=== PATIENT | female | born 1950 | race Caucasian/White ===

== ENCOUNTER 2020-09-15 08:43 | Day surgery (SDC) | payer MEDICARE, OTHER ==
[~2020-09-15 08:43] MED LIST: AMLO5 PO; ATOR80 PO; Aspir 8181 MG PO; BASAGLAR K100 UNIT/1 SC; CARV25 PO; DOXA2 PO; FURO40 PO; Fish Oil 10001000 MG PO; HYDCHL25 PO; LOSA50 PO; NOVOLOG100 UNIT/1 SC; OXYGEN; SPIR25 PO; Synthroid200 MCG PO; XARELTO15 MG PO
== END 2020-09-15 23:36 | disposition home or self-care (01) ==
LOC: WOUND 08:43
DX: E11.622 Type 2 diabetes mellitus with other skin ulcer (principal); L97.822 Non-pressure chronic ulcer of other part of left lower leg with fat layer exposed; L97.811 Non-pressure chronic ulcer of other part of right lower leg limited to breakdown of skin; E11.52 Type 2 diabetes mellitus with diabetic peripheral angiopathy with gangrene; I96 Gangrene, not elsewhere classified; E89.0 Postprocedural hypothyroidism; I87.2 Venous insufficiency (chronic) (peripheral); E11.59 Type 2 diabetes mellitus with other circulatory complications; I49.9 Cardiac arrhythmia, unspecified; I13.2 Hypertensive heart and chronic kidney disease with heart failure and with stage 5 chronic kidney disease, or end stage renal disease; E11.22 Type 2 diabetes mellitus with diabetic chronic kidney disease; N18.6 End stage renal disease; I50.9 Heart failure, unspecified; I48.91 Unspecified atrial fibrillation; E66.01 Morbid (severe) obesity due to excess calories; Z68.43 Body mass index [BMI] 50.0-59.9, adult; Z79.4 Long term (current) use of insulin; Z79.01 Long term (current) use of anticoagulants; Z79.899 Other long term (current) drug therapy; Z51.5 Encounter for palliative care; Z88.5 Allergy status to narcotic agent
CPT/HCPCS: G0463

== ENCOUNTER 2020-09-22 00:19 | Day surgery (SDC) | payer MEDICARE, OTHER | END 2020-09-22 23:17 | disposition home or self-care (01) | LOC: WOUND | DX: E11.622 Type 2 diabetes mellitus with other skin ulcer (principal); L97.822 Non-pressure chronic ulcer of other part of left lower leg with fat layer exposed; L97.811 Non-pressure chronic ulcer of other part of right lower leg limited to breakdown of skin; E11.52 Type 2 diabetes mellitus with diabetic peripheral angiopathy with gangrene; I96 Gangrene, not elsewhere classified; I49.9 Cardiac arrhythmia, unspecified; E07.9 Disorder of thyroid, unspecified; I87.2 Venous insufficiency (chronic) (peripheral); I13.2 Hypertensive heart and chronic kidney disease with heart failure and with stage 5 chronic kidney disease, or end stage renal disease; E11.22 Type 2 diabetes mellitus with diabetic chronic kidney disease; N18.6 End stage renal disease; I50.9 Heart failure, unspecified; E11.59 Type 2 diabetes mellitus with other circulatory complications; Z79.4 Long term (current) use of insulin; Z79.01 Long term (current) use of anticoagulants; Z79.899 Other long term (current) drug therapy; Z88.5 Allergy status to narcotic agent; Z51.5 Encounter for palliative care | CPT/HCPCS: G0463 ==

== ENCOUNTER 2020-09-29 00:17 | Day surgery (SDC) | payer MEDICARE, OTHER | END 2020-09-29 22:52 | disposition home or self-care (01) | LOC: WOUND 00:17 | DX: E11.622 Type 2 diabetes mellitus with other skin ulcer (principal); L97.829 Non-pressure chronic ulcer of other part of left lower leg with unspecified severity; I87.2 Venous insufficiency (chronic) (peripheral); E11.59 Type 2 diabetes mellitus with other circulatory complications; I11.0 Hypertensive heart disease with heart failure; I50.9 Heart failure, unspecified; Z79.4 Long term (current) use of insulin; Z79.899 Other long term (current) drug therapy; Z79.01 Long term (current) use of anticoagulants | CPT/HCPCS: G0463 ==

== ENCOUNTER 2020-10-11 00:31 | Day surgery (SDC) | payer MEDICARE, OTHER | END 2020-10-11 23:09 | disposition home or self-care (01) | LOC: WOUND 00:31 | DX: E11.622 Type 2 diabetes mellitus with other skin ulcer (principal); L97.822 Non-pressure chronic ulcer of other part of left lower leg with fat layer exposed; L97.819 Non-pressure chronic ulcer of other part of right lower leg with unspecified severity; E11.52 Type 2 diabetes mellitus with diabetic peripheral angiopathy with gangrene; I96 Gangrene, not elsewhere classified; E11.59 Type 2 diabetes mellitus with other circulatory complications; I87.2 Venous insufficiency (chronic) (peripheral); I49.9 Cardiac arrhythmia, unspecified; I13.2 Hypertensive heart and chronic kidney disease with heart failure and with stage 5 chronic kidney disease, or end stage renal disease; E11.22 Type 2 diabetes mellitus with diabetic chronic kidney disease; N18.6 End stage renal disease; I50.9 Heart failure, unspecified; Z79.4 Long term (current) use of insulin; Z79.01 Long term (current) use of anticoagulants; Z79.899 Other long term (current) drug therapy; Z88.5 Allergy status to narcotic agent | CPT/HCPCS: 36415; 80069; G0463 ==

== ENCOUNTER 2020-10-27 00:17 | Day surgery (SDC) | payer MEDICARE, OTHER | END 2020-10-27 23:06 | disposition home or self-care (01) | LOC: WOUND 00:17 | DX: E11.622 Type 2 diabetes mellitus with other skin ulcer (principal); L97.822 Non-pressure chronic ulcer of other part of left lower leg with fat layer exposed; L97.819 Non-pressure chronic ulcer of other part of right lower leg with unspecified severity; E11.59 Type 2 diabetes mellitus with other circulatory complications; E11.52 Type 2 diabetes mellitus with diabetic peripheral angiopathy with gangrene; I96 Gangrene, not elsewhere classified; I87.2 Venous insufficiency (chronic) (peripheral); I13.0 Hypertensive heart and chronic kidney disease with heart failure and stage 1 through stage 4 chronic kidney disease, or unspecified chronic kidney disease; E11.22 Type 2 diabetes mellitus with diabetic chronic kidney disease; N18.6 End stage renal disease; I49.9 Cardiac arrhythmia, unspecified; E89.0 Postprocedural hypothyroidism; Z88.5 Allergy status to narcotic agent; Z79.4 Long term (current) use of insulin; Z79.01 Long term (current) use of anticoagulants; Z79.899 Other long term (current) drug therapy ==

== ENCOUNTER 2020-10-31 00:32 | Day surgery (SDC) | payer MEDICARE, OTHER | END 2020-10-31 23:47 | disposition home or self-care (01) | LOC: WOUND 00:32 | DX: E11.622 Type 2 diabetes mellitus with other skin ulcer (principal); L97.829 Non-pressure chronic ulcer of other part of left lower leg with unspecified severity; I87.2 Venous insufficiency (chronic) (peripheral); E11.59 Type 2 diabetes mellitus with other circulatory complications; I11.0 Hypertensive heart disease with heart failure; I50.9 Heart failure, unspecified; L97.822 Non-pressure chronic ulcer of other part of left lower leg with fat layer exposed; Z79.899 Other long term (current) drug therapy; Z79.4 Long term (current) use of insulin | CPT/HCPCS: G0463 ==

== ENCOUNTER 2020-11-16 00:41 | Day surgery (SDC) | payer MEDICARE, OTHER | END 2020-11-16 22:44 | disposition home or self-care (01) | LOC: WOUND 00:41 | DX: E11.622 Type 2 diabetes mellitus with other skin ulcer (principal); L97.822 Non-pressure chronic ulcer of other part of left lower leg with fat layer exposed; L97.811 Non-pressure chronic ulcer of other part of right lower leg limited to breakdown of skin; I87.2 Venous insufficiency (chronic) (peripheral); E11.59 Type 2 diabetes mellitus with other circulatory complications; I11.0 Hypertensive heart disease with heart failure; I50.9 Heart failure, unspecified; K82.9 Disease of gallbladder, unspecified; Z79.4 Long term (current) use of insulin | CPT/HCPCS: G0463 ==

== ENCOUNTER 2020-11-23 00:27 | Day surgery (SDC) | payer MEDICARE, OTHER | END 2020-11-23 22:48 | disposition home or self-care (01) | LOC: WOUND 00:27 | DX: E11.622 Type 2 diabetes mellitus with other skin ulcer (principal); L97.822 Non-pressure chronic ulcer of other part of left lower leg with fat layer exposed; L97.811 Non-pressure chronic ulcer of other part of right lower leg limited to breakdown of skin; E11.59 Type 2 diabetes mellitus with other circulatory complications; I11.0 Hypertensive heart disease with heart failure; I50.9 Heart failure, unspecified; I87.2 Venous insufficiency (chronic) (peripheral); E89.0 Postprocedural hypothyroidism | CPT/HCPCS: A9270 ==

== ENCOUNTER 2020-11-30 00:43 | Day surgery (SDC) | payer MEDICARE, OTHER | END 2020-11-30 23:11 | disposition home or self-care (01) | LOC: WOUND 00:43 | DX: E11.622 Type 2 diabetes mellitus with other skin ulcer (principal); L97.822 Non-pressure chronic ulcer of other part of left lower leg with fat layer exposed; L97.812 Non-pressure chronic ulcer of other part of right lower leg with fat layer exposed; E11.52 Type 2 diabetes mellitus with diabetic peripheral angiopathy with gangrene; I96 Gangrene, not elsewhere classified; I87.2 Venous insufficiency (chronic) (peripheral); E11.59 Type 2 diabetes mellitus with other circulatory complications; I13.2 Hypertensive heart and chronic kidney disease with heart failure and with stage 5 chronic kidney disease, or end stage renal disease; E11.22 Type 2 diabetes mellitus with diabetic chronic kidney disease; N18.6 End stage renal disease; I50.9 Heart failure, unspecified; E89.0 Postprocedural hypothyroidism; I49.9 Cardiac arrhythmia, unspecified; Z79.4 Long term (current) use of insulin; Z79.01 Long term (current) use of anticoagulants; Z79.899 Other long term (current) drug therapy; Z88.5 Allergy status to narcotic agent | CPT/HCPCS: G0463 ==

== ENCOUNTER 2020-12-07 00:17 | Day surgery (SDC) | payer MEDICARE, OTHER | END 2020-12-07 22:38 | disposition home or self-care (01) | LOC: WOUND 00:17 | DX: E11.622 Type 2 diabetes mellitus with other skin ulcer (principal); I87.2 Venous insufficiency (chronic) (peripheral); L97.822 Non-pressure chronic ulcer of other part of left lower leg with fat layer exposed; L97.812 Non-pressure chronic ulcer of other part of right lower leg with fat layer exposed; E11.59 Type 2 diabetes mellitus with other circulatory complications; I11.0 Hypertensive heart disease with heart failure; I50.9 Heart failure, unspecified; E07.9 Disorder of thyroid, unspecified; K62.5 Hemorrhage of anus and rectum; K82.9 Disease of gallbladder, unspecified; R06.02 Shortness of breath; Z79.4 Long term (current) use of insulin | CPT/HCPCS: G0463 ==

== ENCOUNTER 2020-12-14 00:19 | Day surgery (SDC) | payer MEDICARE, OTHER | END 2020-12-14 23:45 | disposition home or self-care (01) | LOC: WOUND 00:19 | DX: E11.622 Type 2 diabetes mellitus with other skin ulcer (principal); L97.828 Non-pressure chronic ulcer of other part of left lower leg with other specified severity; L97.819 Non-pressure chronic ulcer of other part of right lower leg with unspecified severity; E11.59 Type 2 diabetes mellitus with other circulatory complications; I87.2 Venous insufficiency (chronic) (peripheral); I11.0 Hypertensive heart disease with heart failure; I50.9 Heart failure, unspecified ==

== ENCOUNTER 2020-12-20 01:16 | Day surgery (SDC) | payer MEDICARE, OTHER | END 2020-12-20 22:55 | disposition home or self-care (01) | LOC: WOUND 01:16 | DX: E11.622 Type 2 diabetes mellitus with other skin ulcer (principal); L97.921 Non-pressure chronic ulcer of unspecified part of left lower leg limited to breakdown of skin; L97.911 Non-pressure chronic ulcer of unspecified part of right lower leg limited to breakdown of skin; I11.0 Hypertensive heart disease with heart failure; I50.9 Heart failure, unspecified; E11.51 Type 2 diabetes mellitus with diabetic peripheral angiopathy without gangrene; E11.59 Type 2 diabetes mellitus with other circulatory complications | CPT/HCPCS: G0463 ==

== ENCOUNTER 2020-12-28 01:38 | Day surgery (SDC) | payer MEDICARE, OTHER | END 2020-12-28 23:02 | disposition home or self-care (01) | LOC: WOUND 01:38 | DX: E11.622 Type 2 diabetes mellitus with other skin ulcer (principal); L97.821 Non-pressure chronic ulcer of other part of left lower leg limited to breakdown of skin; L97.811 Non-pressure chronic ulcer of other part of right lower leg limited to breakdown of skin; I87.2 Venous insufficiency (chronic) (peripheral); I89.0 Lymphedema, not elsewhere classified; E11.59 Type 2 diabetes mellitus with other circulatory complications; E66.01 Morbid (severe) obesity due to excess calories; I11.0 Hypertensive heart disease with heart failure; I50.9 Heart failure, unspecified; E89.0 Postprocedural hypothyroidism; Z68.43 Body mass index [BMI] 50.0-59.9, adult | CPT/HCPCS: G0463 ==

== ENCOUNTER 2021-01-04 00:32 | Day surgery (SDC) | payer MEDICARE, OTHER | END 2021-01-04 22:48 | disposition home or self-care (01) | LOC: WOUND 00:32 | DX: E11.622 Type 2 diabetes mellitus with other skin ulcer (principal); L97.812 Non-pressure chronic ulcer of other part of right lower leg with fat layer exposed; L97.821 Non-pressure chronic ulcer of other part of left lower leg limited to breakdown of skin; I87.2 Venous insufficiency (chronic) (peripheral); I89.0 Lymphedema, not elsewhere classified; E11.59 Type 2 diabetes mellitus with other circulatory complications | CPT/HCPCS: A9270; G0463 ==

== ENCOUNTER 2021-01-11 00:12 | Day surgery (SDC) | payer MEDICARE, OTHER | END 2021-01-11 22:41 | disposition home or self-care (01) | LOC: WOUND 00:12 | DX: E11.622 Type 2 diabetes mellitus with other skin ulcer (principal); L97.812 Non-pressure chronic ulcer of other part of right lower leg with fat layer exposed; L98.491 Non-pressure chronic ulcer of skin of other sites limited to breakdown of skin; I87.2 Venous insufficiency (chronic) (peripheral); I89.0 Lymphedema, not elsewhere classified; E11.59 Type 2 diabetes mellitus with other circulatory complications; I10 Essential (primary) hypertension; Z79.4 Long term (current) use of insulin | CPT/HCPCS: G0463 ==

== ENCOUNTER 2021-01-17 00:25 | Day surgery (SDC) | payer MEDICARE, OTHER | END 2021-01-17 22:54 | disposition home or self-care (01) | LOC: WOUND 00:25 | DX: E11.622 Type 2 diabetes mellitus with other skin ulcer (principal); L97.812 Non-pressure chronic ulcer of other part of right lower leg with fat layer exposed; L97.821 Non-pressure chronic ulcer of other part of left lower leg limited to breakdown of skin; L97.819 Non-pressure chronic ulcer of other part of right lower leg with unspecified severity; E11.59 Type 2 diabetes mellitus with other circulatory complications; I87.2 Venous insufficiency (chronic) (peripheral); Z79.4 Long term (current) use of insulin | CPT/HCPCS: G0463 ==

== ENCOUNTER 2021-01-25 00:44 | Day surgery (SDC) | payer MEDICARE, OTHER | END 2021-01-25 22:44 | disposition home or self-care (01) | LOC: WOUND 00:44 | DX: E11.622 Type 2 diabetes mellitus with other skin ulcer (principal); I87.2 Venous insufficiency (chronic) (peripheral); I89.0 Lymphedema, not elsewhere classified; L97.829 Non-pressure chronic ulcer of other part of left lower leg with unspecified severity; L97.819 Non-pressure chronic ulcer of other part of right lower leg with unspecified severity; E11.59 Type 2 diabetes mellitus with other circulatory complications ==

== ENCOUNTER 2021-02-01 00:20 | Day surgery (SDC) | payer MEDICARE, OTHER | END 2021-02-01 22:40 | disposition home or self-care (01) | LOC: WOUND 00:20 | DX: E11.622 Type 2 diabetes mellitus with other skin ulcer (principal); L97.821 Non-pressure chronic ulcer of other part of left lower leg limited to breakdown of skin; L97.811 Non-pressure chronic ulcer of other part of right lower leg limited to breakdown of skin; E11.59 Type 2 diabetes mellitus with other circulatory complications; I89.0 Lymphedema, not elsewhere classified; I87.2 Venous insufficiency (chronic) (peripheral) | CPT/HCPCS: G0463 ==

== ENCOUNTER 2021-02-08 01:21 | Day surgery (SDC) | payer MEDICARE, OTHER | END 2021-02-08 23:01 | disposition home or self-care (01) | LOC: WOUND 01:21 | DX: L97.819 Non-pressure chronic ulcer of other part of right lower leg with unspecified severity (principal); L97.829 Non-pressure chronic ulcer of other part of left lower leg with unspecified severity | CPT/HCPCS: G0463 ==

== ENCOUNTER 2021-02-15 00:21 | Day surgery (SDC) | payer MEDICARE, OTHER | END 2021-02-15 22:45 | disposition home or self-care (01) | LOC: WOUND 00:21 | DX: E11.622 Type 2 diabetes mellitus with other skin ulcer (principal); L97.829 Non-pressure chronic ulcer of other part of left lower leg with unspecified severity; L97.819 Non-pressure chronic ulcer of other part of right lower leg with unspecified severity; I87.2 Venous insufficiency (chronic) (peripheral); I89.0 Lymphedema, not elsewhere classified; E11.59 Type 2 diabetes mellitus with other circulatory complications | CPT/HCPCS: G0463 ==

== ENCOUNTER 2021-03-08 01:12 | Day surgery (SDC) | payer MEDICARE, OTHER | END 2021-03-08 23:22 | disposition home or self-care (01) | LOC: WOUND 01:12 | DX: I89.0 Lymphedema, not elsewhere classified (principal) | CPT/HCPCS: G0463 ==

== ENCOUNTER 2021-03-29 10:01 | Day surgery (SDC) | payer MEDICARE, OTHER | END 2021-03-30 23:03 | disposition home or self-care (01) | LOC: WOUND 10:01 | DX: E11.622 Type 2 diabetes mellitus with other skin ulcer (principal); L97.812 Non-pressure chronic ulcer of other part of right lower leg with fat layer exposed; L97.829 Non-pressure chronic ulcer of other part of left lower leg with unspecified severity; I87.2 Venous insufficiency (chronic) (peripheral); I89.0 Lymphedema, not elsewhere classified; E11.59 Type 2 diabetes mellitus with other circulatory complications ==

== ENCOUNTER 2021-04-05 03:21 | Day surgery (SDC) | payer MEDICARE, OTHER | END 2021-04-05 23:34 | disposition home or self-care (01) | LOC: WOUND 03:21 | DX: E11.622 Type 2 diabetes mellitus with other skin ulcer (principal); L97.829 Non-pressure chronic ulcer of other part of left lower leg with unspecified severity; L97.819 Non-pressure chronic ulcer of other part of right lower leg with unspecified severity; E11.59 Type 2 diabetes mellitus with other circulatory complications; I87.2 Venous insufficiency (chronic) (peripheral); I89.0 Lymphedema, not elsewhere classified | CPT/HCPCS: A9270 ==

== ENCOUNTER 2021-04-12 04:36 | Day surgery (SDC) | payer MEDICARE, OTHER | END 2021-04-12 22:58 | disposition home or self-care (01) | LOC: WOUND 04:36 | DX: E11.622 Type 2 diabetes mellitus with other skin ulcer (principal); L97.812 Non-pressure chronic ulcer of other part of right lower leg with fat layer exposed; L97.829 Non-pressure chronic ulcer of other part of left lower leg with unspecified severity; E11.59 Type 2 diabetes mellitus with other circulatory complications; I87.2 Venous insufficiency (chronic) (peripheral); I89.0 Lymphedema, not elsewhere classified; Z79.4 Long term (current) use of insulin | CPT/HCPCS: A9270; G0463 ==

== ENCOUNTER 2021-04-19 02:21 | Day surgery (SDC) | payer MEDICARE, OTHER | END 2021-04-19 23:51 | disposition home or self-care (01) | LOC: WOUND 02:21 | DX: E11.622 Type 2 diabetes mellitus with other skin ulcer (principal); L97.829 Non-pressure chronic ulcer of other part of left lower leg with unspecified severity; L97.819 Non-pressure chronic ulcer of other part of right lower leg with unspecified severity; I87.2 Venous insufficiency (chronic) (peripheral); I89.0 Lymphedema, not elsewhere classified; E11.59 Type 2 diabetes mellitus with other circulatory complications | CPT/HCPCS: A9270; G0463 ==

== ENCOUNTER 2021-04-26 04:34 | Day surgery (SDC) | payer MEDICARE, OTHER | END 2021-04-26 22:53 | disposition home or self-care (01) | LOC: WOUND 04:34 | DX: L97.812 Non-pressure chronic ulcer of other part of right lower leg with fat layer exposed (principal); L97.822 Non-pressure chronic ulcer of other part of left lower leg with fat layer exposed | CPT/HCPCS: G0463 ==

== ENCOUNTER 2021-05-10 02:54 | Day surgery (SDC) | payer MEDICARE, OTHER | END 2021-05-10 23:35 | disposition home or self-care (01) | LOC: WOUND 02:54 | DX: E11.622 Type 2 diabetes mellitus with other skin ulcer (principal); L97.829 Non-pressure chronic ulcer of other part of left lower leg with unspecified severity; L97.819 Non-pressure chronic ulcer of other part of right lower leg with unspecified severity; I87.2 Venous insufficiency (chronic) (peripheral); I89.0 Lymphedema, not elsewhere classified; E11.59 Type 2 diabetes mellitus with other circulatory complications | CPT/HCPCS: G0463 ==

== ENCOUNTER → 2022-10-31 | Outpatient (CLI) | payer MEDICARE, OTHER ==
[2022-10-31 15:40] LABS: Creatinine, Urine Random 34.2 mg/dL (27.00-270.00); Protein, Urine Random 6.3 mg/dL (0.0-11.9); Protein/Creat Ratio, Ur Random 0.2
[2022-10-31 16:37] LABS: Albumin, Blood 3.1 g/dL (3.4-5.0); Anion Gap 5 mmol/L (6-16); Blood Urea Nitrogen 28 mg/dL (8-24); Bun/Creatinine Ratio 18.9 (12.0-20.0); CO2, Blood 29 mmol/L (21-32); Calcium, Blood 8.7 mg/dL (8.5-10.1); Chloride, Blood 111 mmol/L (98-108); Creatinine, Blood 1.48 mg/dL (0.40-1.00); Glomerular Filtration Rate 38 (60-); Glucose, Blood 95 mg/dL (70-99); Phosphorus, Blood 3.7 mg/dL (2.5-4.9); Sodium, Blood 145 mmol/L (136-145)
== END | disposition home or self-care (01) ==
LOC: LAB SHORT 14:33
PROVIDERS: Internal Medicine Nephrology
DX: N18.4 Chronic kidney disease, stage 4 (severe) (principal)
CPT/HCPCS: 80069; 82570; 83970; 84156

== ENCOUNTER 2023-11-25 02:49 | Emergency (ER) | payer MEDICARE, OTHER ==
[~2023-11-25] VITALS: Ht 177.8 cm; Wt 167.8 kg
[2023-11-25 08:01] VITALS: BP 126/91
== END 2023-11-25 08:15 | disposition home or self-care (01) ==
LOC: ER 02:49
DX: S22.41XA Multiple fractures of ribs, right side, initial encounter for closed fracture (principal); S86.911A Strain of unspecified muscle(s) and tendon(s) at lower leg level, right leg, initial encounter; W18.30XA Fall on same level, unspecified, initial encounter
CPT/HCPCS: 12011; 70450; 71250; 72125; 73562-RT; 90471; 90714; 96374-59; 96375-59; 96376-59; 99284-25; A9270; J1170; J2405

== ENCOUNTER 2023-12-01 21:43 | Emergency (ER) | payer MEDICARE, OTHER ==
[~2023-12-01] VITALS: Ht 177.8 cm; Wt 167.8 kg
[2023-12-01 22:00] VITALS: BP 132/90
[2023-12-01] MEDS ORDERED: HYDR1TAB94 PO (23:39)
== END 2023-12-02 00:09 | disposition home or self-care (01) ==
LOC: ER 21:43
DX: S80.11XA Contusion of right lower leg, initial encounter (principal); Z79.899 Other long term (current) drug therapy; Z79.01 Long term (current) use of anticoagulants; W19.XXXA Unspecified fall, initial encounter
CPT/HCPCS: 99283; A9270

== ENCOUNTER 2024-05-24 21:00 | Emergency (ER) | payer MEDICARE, OTHER ==
[~2024-05-24] VITALS: Ht 177.8 cm; Wt 172.4 kg
[~2024-05-24 21:00] MED LIST changes: +HYDR1TAB94 PO
[2024-05-24 21:40] LABS: BASOPHILS ABSOLUTE AUTO 0.05 K/mm3 (0.00-0.23); BASOPHILS PERCENT AUTO 1 % (0-2); EOSINOPHILS ABSOLUTE AUTO 0.19 K/mm3 (0.00-0.68); EOSINOPHILS PERCENT AUTO 2 % (0-6); Hematocrit 43.7 % (33.0-51.0); Hemoglobin 12.8 g/dL (11.5-16.0); IMMATURE GRAN ABSOLUTE AUTO 0.03 K/mm3 (0.00-0.10); IMMATURE GRAN PERCENT AUTO 0 % (0-1); LYMPHOCYTES PERCENT AUTO 14 % (21-46); MONOCYTES ABSOLUTE AUTO 0.75 K/mm3 (0.16-1.47); MONOCYTES PERCENT AUTO 8 % (4-13); Mean Corpuscular HGB 26.6 pg (26.0-34.0); Mean Corpuscular HGB Conc 29.3 g/dL (31.5-36.5); Mean Corpuscular Volume 91 fL (80-100); NEUTROPHILS ABSOLUTE AUTO 7.11 K/mm3 (1.96-9.15); NEUTROPHILS PERCENT AUTO 75 % (41-73); Platelet Count 207 K/mm3 (150-400); RDW Coefficient Variation 19.1 % (11.7-14.2); RDW Standard Deviation 62.1 fL (35.1-46.3); Red Blood Cell Count 4.82 M/mm3 (3.80-5.20); White Blood Cell Count 9.43 K/mm3 (4.00-11.30)
[2024-05-24 21:58] LABS: Albumin, Blood 2.9 g/dL (3.4-5.0); Albumin/Globulin Ratio 0.8 (0.8-1.8); Bilirubin, Total 0.6 mg/dL (0.1-1.0); Bun/Creatinine Ratio 19.6 (12.0-20.0); Calcium, Blood 8.5 mg/dL (8.5-10.1); Creatinine, Blood 1.38 mg/dL (0.40-1.00); Globulin, Blood 3.7 g/dL (2.2-4.0); Potassium, Blood 4.1 mmol/L (3.5-5.5); Total Protein, Blood 6.6 g/dL (6.4-8.2)
[2024-05-24] MEDS ORDERED: Furosemide 10 MG/ML 4ML Vial IV ONE (23:20)
[2024-05-24 23:30] VITALS: BP 145/94
== END 2024-05-25 00:08 | disposition home or self-care (01) ==
LOC: ER 21:00
PROVIDERS: Emergency Medicine
DX: I13.0 Hypertensive heart and chronic kidney disease with heart failure and stage 1 through stage 4 chronic kidney disease, or unspecified chronic kidney disease (principal); I50.9 Heart failure, unspecified; R60.0 Localized edema; E11.22 Type 2 diabetes mellitus with diabetic chronic kidney disease; N18.2 Chronic kidney disease, stage 2 (mild); E78.5 Hyperlipidemia, unspecified; E03.9 Hypothyroidism, unspecified; E66.01 Morbid (severe) obesity due to excess calories; I48.91 Unspecified atrial fibrillation; Z79.899 Other long term (current) drug therapy; Z79.4 Long term (current) use of insulin
CPT/HCPCS: 71046; 80053; 83880; 85025; 93005; 93010; 96374; 99285-25; J1940

== ENCOUNTER 2024-10-13 14:30 | Inpatient (IN) | payer MEDICARE, OTHER ==
[~2024-10-13] VITALS: Ht 177.8 cm; Wt 167.9 kg
[~2024-10-13 14:30] MED LIST changes: +FURO20 PO; -FURO40 PO; +SYNTHROID PO; -Synthroid200 MCG PO
[2024-10-13] MEDS ORDERED: Furosemide 10 MG/ML 4ML Vial IV ONE (15:10)
[2024-10-13 15:34] LABS: BASOPHILS ABSOLUTE AUTO 0.05 K/mm3 (0.00-0.23); BASOPHILS PERCENT AUTO 1 % (0-2); EOSINOPHILS ABSOLUTE AUTO 0.22 K/mm3 (0.00-0.68); EOSINOPHILS PERCENT AUTO 3 % (0-6); Hematocrit 45.3 % (33.0-51.0); IMMATURE GRAN ABSOLUTE AUTO 0.04 K/mm3 (0.00-0.10); IMMATURE GRAN PERCENT AUTO 1 % (0-1); LYMPHOCYTES ABSOLUTE AUTO 1.24 K/mm3 (0.84-5.20); LYMPHOCYTES PERCENT AUTO 14 % (21-46); MONOCYTES ABSOLUTE AUTO 0.68 K/mm3 (0.16-1.47); MONOCYTES PERCENT AUTO 8 % (4-13); Mean Corpuscular HGB 27.5 pg (26.0-34.0); Mean Corpuscular HGB Conc 28.7 g/dL (31.5-36.5); Mean Corpuscular Volume 96 fL (80-100); Mean Platelet Volume 10.7 fL (9.1-12.4); NEUTROPHILS ABSOLUTE AUTO 6.61 K/mm3 (1.96-9.15); NEUTROPHILS PERCENT AUTO 75 % (41-73); Platelet Count 218 K/mm3 (150-400); RDW Coefficient Variation 19.5 % (11.7-14.2); RDW Standard Deviation 67.4 fL (35.1-46.3); Red Blood Cell Count 4.72 M/mm3 (3.80-5.20); White Blood Cell Count 8.84 K/mm3 (4.00-11.30)
[2024-10-13 15:52] LABS: Bun/Creatinine Ratio 17.7 (12.0-20.0); Calcium, Blood 9.2 mg/dL (8.5-10.1); Creatinine, Blood 1.41 mg/dL (0.40-1.00); Potassium, Blood 4.6 mmol/L (3.5-5.5)
[2024-10-13] MEDS ORDERED: Doxycycline Hyclate 100 MG TAB PO ONE (16:45)
[2024-10-13] MEDS ORDERED: DOXY100 PO (16:46)
[2024-10-13] MEDS ORDERED: Ondansetron HCl 2 MG / ML 2ML Vial IV PRN (19:00)
[2024-10-13] MEDS ORDERED: FLU VACC TS2024-25(6MOS UP)/PF 45 MCG/0.5 ML SYRINGE IM SCH (19:00)
[2024-10-13] MEDS ORDERED: TraMADol HCl 50 MG Tab PO PRN (19:05)
[2024-10-13] MEDS ORDERED: CeFAZolin Sodium 2,000 MG in NS 100 ML IV SCH (20:00)
[2024-10-13 20:23] LABS: Source, Urine Foley catheter
[2024-10-13 20:30] LABS: Bilirubin, Urine Neg (Neg); Blood, Urine Neg (Neg); Glucose Qualitative, Urine 4+ (Neg); Ketones, Urine Neg (Neg); Leukocyte Esterase, Urine Neg (Neg); Nitrite, Urine Neg (Neg); Protein, Urine Neg (Neg); Specific Gravity, Urine 1.015 (1.003-1.022); Urobilinogen, Urine NORM (Normal)
[2024-10-13 20:38] LABS: Appearance, Urine Clear (Clear); Color, Urine Pale Yellow (P-Yellow)
[2024-10-13] MEDS ORDERED: Insulin Glargine-Yfgn 100 Unit/mL 3 ML SYR SC SCH (21:00)
[2024-10-13] MEDS ORDERED: Lactobacil 2-S.Thermo-Bifido 1 1 Cap PO SCH (21:00)
[2024-10-13] MEDS ORDERED: Sennosides 8.6 MG Tab PO SCH (21:00)
[2024-10-13 21:14] VITALS: BP 143/93
--- NOTE | 2024-10-13 21:15 | NUR ---
NEW ADMIT. PATIENT ADMITTED TO ROOM 354 FROM THE ER. PATIENT ARRIVED TO ROOM VIA GURNEY AND 2P TRANSPORT. PATIENT ABLE TO STAND PIVOT FROM GURNEY TO HOSPITAL BED WITH 2P ASSIST. PATIENT HAS PERSONAL BAG WITH TABLET AND COMMUNITY MARKETING MANAGER. PATIENT ARRIVED WITH A STEPHEN CATHETER THAT IS PATENT AND DRAINING TO GRAVITY. PATIENT ORIENTED TO ROOM AND THIS RN TO ASSUME PATIENT CARE.
[2024-10-13] MEDS ORDERED: FARXIGA10 MG PO (22:04)
[2024-10-13] MEDS ORDERED: NOVOLOG100 UNIT/2 SC (22:25)
[2024-10-13] MEDS ORDERED: TERB250 PO (22:37)
[2024-10-13] MEDS ORDERED: LISI5 PO (22:37)
--- NOTE | 2024-10-13 22:45 | NUR ---
WOUNDS TO BLE EVALUATED AND CLEANSED WITH WOUND SALES CONSULTANT INSURANCE AND GAUZE. DRESSING APPLIED TO LLE-WOUND IS WEAPING AND PAINFUL TO THE TOUCH- DRESSED WITH EXUDRY, KERLEX AND KALLI BANDAGE. WOUND TO RLE CLEANSED WITH WOUND SALES CONSULTANT INSURANCE AND GAUZE. DRESSING APPLIED TO RLE INCLUDES ABD PAD, KERLEX, AND SMALL KALLI BANDAGE. LOWER EXTREMITIES ELEVATED WITH PILLOWS AND BED.
[2024-10-14] MEDS ORDERED: NS 250 ML IV PRN (01:55)
[2024-10-14 02:05] VITALS: BP 134/100
--- NOTE | 2024-10-14 04:14 | NUR ---
SHIFT SUMMARY. PATIENT IS A&OX4. PATIENT IS PLEASANT AND COOPERATIVE WITH CARE. PATIENT HAS WOUNDS TO BLE-SEE PICTURES IN CHART. PATIENT CALLS APPROPRIATELY AND IS ABLE TO MAKE HER NEEDS KNOWN. PATIENT HAS RESTED OFF AND ON INTERMITTENTLY WATCHING TV ON HER TABLET. PATIENT HAS TROUBLE BREATHING WHEN LAYING FLAT DOWN-PATIENT ONLY LAYED FLAT TO WEIGH AND BOOST UP IN BED. [place] [facility] [place] A WALKER [facility]. PATIENT PROVIDED WATER AND TEA THIS SHIFT. PATIENTS IV LEAKING AND PAINFUL-NEW IV PLACED. PATIENT HAS MEDICATED POWDER ORDERED PER DOCTOR FOR REDNESS TO FOLDS AND GROIN. PATIENTS BED IS LOCKED IN THE LOWEST POSITION WITH CALL LIGHT IN REACH. CARE IS ONGOING.
[2024-10-14] MEDS ORDERED: Levothyroxine Sodium 0.1 MG Tab PO SCH (06:00)
[2024-10-14 06:03] LABS: Calcium, Blood 9.1 mg/dL (8.5-10.1); Creatinine, Blood 1.37 mg/dL (0.40-1.00); Potassium, Blood 4.2 mmol/L (3.5-5.5)
[2024-10-14 07:30] VITALS: BP 140/86
[2024-10-14] MEDS ORDERED: Insulin Human Lispro 100 Units/ML 3ML Syringe SC SCH (07:30)
[2024-10-14] MEDS ORDERED: Carvedilol 25 MG Tab PO SCH (08:00)
[2024-10-14] MEDS ORDERED: Spironolactone 25 MG Tab PO SCH (09:00)
[2024-10-14] MEDS ORDERED: Furosemide 40 MG Tab PO SCH (09:00)
[2024-10-14] MEDS ORDERED: Atorvastatin 40 MG Tab PO SCH (09:00)
[2024-10-14] MEDS ORDERED: Miconazole Nitrate 2% 85 GM PWD TOP SCH ×2 (09:00)
--- NOTE | 2024-10-14 09:21 | NUR ---
SPOKE WITH DR DURAN ABOUT REMOVING STEPHEN AND ORDERS RECEIVED TO REMOVE IT AFTER PATIENT WORKS WITH PHYSICAL THERAPY. DR DURAN ALSO INFORMED OF PRESSURE SORE TO COXXYX AND PHOTOS OF ALL WOUNDS WERE SHOWN TO HER. VERBAL WOUND CARE ORDERS RECEIVED.
[2024-10-14] MEDS ORDERED: Furosemide 10 MG/ML 4ML Vial IV SCH ×2 (11:00→13:00)
[2024-10-14 15:28] VITALS: BP 133/81
--- NOTE | 2024-10-14 17:22 | NUR ---
SHIFT SUMMARY PT IS A/OX4, UP WITH 1-2 PERSON ASSIST, STAND PIVOT TO BSC AND CHAIR. STEPHEN D/C'S THIS MORNING. PT CONTINENT OF BOWELS AND BLADDER AND VOIDING FREQUENTLY THROUGHOUT THIS SHIFT. PT UP IN CHAIR FOR MUCH OF THIS SHIFT. PT CONTINUES ABX THERAPY. PT CALLS APPROPRIATELY USING THE CALL LIGHT.
[2024-10-14] MEDS ORDERED: Rivaroxaban 10 MG Tab PO SCH (18:00)
[2024-10-14 19:33] VITALS: BP 123/70
--- NOTE | 2024-10-15 04:09 | NUR ---
SHIFT SUMMARY. PATIENT IS A&OX4. PATIENT IS A 1P ASSIST TO STAND PIVOT TO THE BSC. PATIENT CALLS APPROPRIATELY AND IS ABLE TO MAKE HER NEEDS KNOWN. WOUND DRESSING TO BLE COMPLETE-MEPITEL NOT AVALIABLE ALTERNATE DRESSING USED-WILL RELAY TO DAYSHIFT NURSE. PATIENT HAS PUREWICK PLACED T/O NIGHT PATIENT IS WEAK, AND HAS FREQUENCY AND URGENCY c URINATION. PATIENT TOLERATED PUREWICK WELL T/O NIGHT. 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 PATIENTS BED IS LOCKED IN THE LOWEST POSITION WITH CALL LIGHT IN REACH. CARE IS ONGOING.
[2024-10-15 04:32] VITALS: BP 119/69
[2024-10-15 05:26] LABS: Albumin, Blood 2.5 g/dL (3.4-5.0); Anion Gap 9 mmol/L (3-11); Blood Urea Nitrogen 30 mg/dL (8-24); Bun/Creatinine Ratio 19.1 (12.0-20.0); CO2, Blood 34 mmol/L (21-32); Calcium, Blood 8.9 mg/dL (8.5-10.1); Chloride, Blood 106 mmol/L (98-108); Creatinine, Blood 1.57 mg/dL (0.40-1.00); Glomerular Filtration Rate 35 (60-); Glucose, Blood 138 mg/dL (70-99); Magnesium, Blood 1.9 mg/dL (1.6-2.4); Phosphorus, Blood 3.5 mg/dL (2.5-4.9); Potassium, Blood 3.9 mmol/L (3.5-5.5); Sodium, Blood 145 mmol/L (136-145)
[2024-10-15 07:44] VITALS: BP 145/113
[2024-10-15] MEDS ORDERED: Furosemide 10 MG/ML 4ML Vial IV SCH (09:00)
[2024-10-15 14:50] VITALS: BP 131/58
--- NOTE | 2024-10-15 18:34 | NUR ---
SHIFT SUMMARY: PT A/O X4. PLEASANT AND COOPERATIVE WITH CARE. PT WORKED WITH PT/OT THIS SHIFT. REFERRAL AND ACCEPTANCE TO [facility]. 1P ASSIST TO BSC. PT HAS PUREWICK IN PLACE. PT STATED TO THIS RN SHE IS HAVING INSOMNIA AND NORMALLY HAS NIGHT TIME SNACK TO AIDE IN FALLING ASLEEP. WILL RELAY TO ONCOMING NURSE. BANDAGE/WRAPPING TO LLE C/D/I. CALL LIGHT IN REACH. BED IN LOWEST POSITION.
--- NOTE | 2024-10-15 18:39 | NUR ---
SHIFT SUMMARY: PT A/O X4. PLEASANT AND COOPERATIVE WITH CARE. PT C/O SEVERE ABDOMINAL PAIN THIS AM WITH FREQUENT LIQUID DIARRHEA AND BLOODY STOOL. DR. WILLIAMSON MADE AWARE AND ORDERED CDIFF PANEL. PANEL NEGATIVE FOR CDIFF. PROVIDED PAIN MEDICATION ONCE THIS SHIFT. DR. TIAN IN ROOM THIS SHIFT TO PULL DRAIN FROM R. WRIST. PT TOLERATED WELL. NO C/O DISCOMFORT POST DRAIN REMOVAL. TELE IN PLACE RUNNING SINUS RHYHTM IN 80'S. AWAITING CULTURE RESULTS FOR DISCHARGE PLANNING. CALL LIGHT IN REACH. BED IN LOWEST POSITION.
[2024-10-15 20:11] VITALS: BP 138/84
[2024-10-16 05:53] LABS: Albumin, Blood 2.5 g/dL (3.4-5.0); Anion Gap 6 mmol/L (3-11); Blood Urea Nitrogen 32 mg/dL (8-24); Bun/Creatinine Ratio 20.1 (12.0-20.0); CO2, Blood 36 mmol/L (21-32); Calcium, Blood 9.1 mg/dL (8.5-10.1); Chloride, Blood 104 mmol/L (98-108); Creatinine, Blood 1.59 mg/dL (0.40-1.00); Glomerular Filtration Rate 35 (60-); Glucose, Blood 161 mg/dL (70-99); Phosphorus, Blood 3.2 mg/dL (2.5-4.9); Potassium, Blood 3.8 mmol/L (3.5-5.5); Sodium, Blood 142 mmol/L (136-145)
--- NOTE | 2024-10-16 06:39 | NUR ---
NOC SUMMARY- PT DRESSING CHANGED. PT PAIN MANAGED WELL. PT IS VOIDING WELL, PT USED A PUREWICK DURING THE NIGHT. PT ABLE TO USE BSC W/ GB AND 1 ASSISTANCE. DESSENEX APPLIED. PT RESTING QUIETLY. CALL LIGHT IN REACH.
[2024-10-16 07:49] VITALS: BP 122/80
[2024-10-16 14:48] VITALS: BP 133/75
[2024-10-16 16:43] LABS: CORONAVIRUS COVID-19 AG Negative (NEGATIVE)
--- NOTE | 2024-10-16 17:46 | NUR ---
SHIFT SUMMARY: PT A/O X4. PLEASANT AND COOPERATIVE. 1PA c FWW AND GB. PT HAS BEEN UP IN CHAIR THROUGHOUT SHIFT. DRESSING TO [facility] C/D/I. PLAN FOR PATIENT TO D/C TOMORROW TO [facility]. COVID SWAB COMPLETED WITH A NEGATIVE RESULT. IV IN LFA INFILTRATED THIS SHIFT. NEW IV PLACED IN LFA. ABX INFUSED W/O COMPLICATIONS. CALL LIGHT IN REACH. BED IN LOWEST POSITION.
[2024-10-16 19:39] VITALS: BP 131/82
[2024-10-17 03:23] VITALS: BP 124/80
--- NOTE | 2024-10-17 04:22 | NUR ---
SHIFT SUMMARY PATIENT HAD NO ACUTE CHANGES. AXOX 4 AND ONE ASSIST FWW TO BSC. DENIES CHEST PAIN, SOB, AND N/V. VSS/AFEBRILE. PIV INTACT. IV ABX INFUSED. CBG 242. DRESSING TO LEFT BLE CHANGED AFTER DRAINAGE. WATCHED TABLET DEVICE MOST OF THE SHIFT. COOPERATIVE WITH CARE. CALL LIGHT IN REACH. BED IN LOWEST POSITION. WILL CONTINUE TO MONITOR UNTIL DAY SHIFT NURSE ASSUMES CARE.
[2024-10-17 04:58] LABS: Hematocrit 40.6 % (33.0-51.0); Hemoglobin 12.1 g/dL (11.5-16.0); Mean Corpuscular HGB 27.7 pg (26.0-34.0); Mean Corpuscular HGB Conc 29.8 g/dL (31.5-36.5); Mean Corpuscular Volume 93 fL (80-100); Mean Platelet Volume 10.8 fL (9.1-12.4); Platelet Count 218 K/mm3 (150-400); RDW Coefficient Variation 19.2 % (11.7-14.2); RDW Standard Deviation 64.7 fL (35.1-46.3); Red Blood Cell Count 4.37 M/mm3 (3.80-5.20); White Blood Cell Count 8.27 K/mm3 (4.00-11.30)
[2024-10-17 05:16] LABS: Albumin, Blood 2.5 g/dL (3.4-5.0); Anion Gap 6 mmol/L (3-11); Blood Urea Nitrogen 32 mg/dL (8-24); Bun/Creatinine Ratio 20.4 (12.0-20.0); CO2, Blood 34 mmol/L (21-32); Chloride, Blood 105 mmol/L (98-108); Creatinine, Blood 1.57 mg/dL (0.40-1.00); Glomerular Filtration Rate 35 (60-); Glucose, Blood 174 mg/dL (70-99); Phosphorus, Blood 2.9 mg/dL (2.5-4.9); Potassium, Blood 3.9 mmol/L (3.5-5.5); Sodium, Blood 141 mmol/L (136-145)
[2024-10-17 07:24] VITALS: BP 123/94
[2024-10-17] MEDS ORDERED: Lisinopril 5 MG Tab PO SCH (09:00)
[2024-10-17] MEDS ORDERED: Empagliflozin 10 MG TAB PO SCH (09:00)
--- NOTE | 2024-10-17 09:00 | NUR ---
pt sitting up in chair watching tv, a/ox4, pleasant and cooperative with care, follows commands well, denies pain at this time, lungs are clear in upper rico, dim in bases, resp even and unlabored, no cough noted or reported, on r/a, hrr, edema noted to b/l le, piv to left fa, site is clear and patent, bt x3, abd flat soft nontender, voids via bsc, skin has dressing to left lower ext, due to cellulitis, wheeping copious amounts of yellow fluid, has yeast rash under folds, skin otherwise is c/w/d, diana daniels, call light in reach.
[2024-10-17] MEDS ORDERED: CEPH500 PO (12:47)
[2024-10-17] MEDS ORDERED: SPIR50 PO (12:48)
[2024-10-17] MEDS ORDERED: MICONAZOLE NITR85 GM TOP (12:48)
[2024-10-17] MEDS ORDERED: VISBIOME 112.51 EACH PO (12:49)
--- NOTE | 2024-10-17 12:52 | NUR ---
pt will be transfering to [facility] at 1330 by wheelchair van, she is informed, called report to recieving nurse at [facility]. iv removed intact, call light in reach.
--- NOTE | 2024-10-17 14:39 | NUR ---
[facility] here to take pt to [facility] via wheelchair, she has all her belongings with her, report was called.
== END 2024-10-17 16:37 | DRG 602 ==
LOC: ER 14:30 → MEDS 20:29
PROVIDERS: Emergency Medicine; Family Medicine; Internal Medicine; Nurse Practitioner Acute Care; ADMIT Student in an Organized Health Care Education/Training Program
DX: L03.116 Cellulitis of left lower limb (principal); I50.23 Acute on chronic systolic (congestive) heart failure; I48.20 Chronic atrial fibrillation, unspecified; I13.0 Hypertensive heart and chronic kidney disease with heart failure and stage 1 through stage 4 chronic kidney disease, or unspecified chronic kidney disease; E87.1 Hypo-osmolality and hyponatremia; Z68.43 Body mass index [BMI] 50.0-59.9, adult; Z66 Do not resuscitate; E78.5 Hyperlipidemia, unspecified; E03.9 Hypothyroidism, unspecified; E66.01 Morbid (severe) obesity due to excess calories; N18.30 Chronic kidney disease, stage 3 unspecified; E11.22 Type 2 diabetes mellitus with diabetic chronic kidney disease; B37.2 Candidiasis of skin and nail; Z99.3 Dependence on wheelchair; S80.812A Abrasion, left lower leg, initial encounter; Z79.890 Hormone replacement therapy; Z79.4 Long term (current) use of insulin; Z79.899 Other long term (current) drug therapy; W19.XXXA Unspecified fall, initial encounter
CPT/HCPCS: 36415; 51702; 80048; 80069; 81003; 82947; 83735; 83880; 84439; 84443; 85025; 85027; 87426-QW; 93971; 96365; 96366; 96374-59; 96375-59; 96376; 97110; 97116; 97162; 97166; 97530; 97535; 99285-25; A9270; C8929; G0378; J0690; J1815; J1940; J7050; Q9957